=== PATIENT | male | born 1955 | race Caucasian/White ===

== ENCOUNTER 2024-06-22 14:23 | Inpatient (IN) | payer MEDICARE ==
[2024-06-22 15:56] VITALS: BMI 31.0
[2024-06-22] MEDS: ALPRAZolam 0.5 MG TAB PO SCH (23:38)
[2024-06-22] MEDS: Tamsulosin HCl 0.4 MG CAP PO SCH (23:38)
[2024-06-22] MEDS: Ranolazine ER 500 MG TAB PO SCH (23:39)
[2024-06-22] MEDS: Atorvastatin Calcium 40 MG TAB PO SCH (23:39)
[2024-06-22] MEDS: LevoFLOXacin 500 MG TAB PO SCH (23:39)
[2024-06-22] MEDS: Carbidopa/Levodopa 25-100 mg Tablet PO SCH (23:39)
[2024-06-23] MEDS ORDERED: Ondansetron ODT 4 MG TAB PO PRN (06:29)
[2024-06-23] MEDS ORDERED: Acetaminophen 325 MG TAB PO PRN (06:45)
[2024-06-23] MEDS: Isosorbide Mononitrate 30 MG ER.TAB PO SCH (08:35)
[2024-06-23] MEDS: Prasugrel 10 MG TAB PO SCH (08:35)
[2024-06-23] MEDS: Pantoprazole DR 40 MG TAB PO SCH (08:36)
[2024-06-23] MEDS: Amlodipine 5 MG TAB PO SCH (08:36)
[2024-06-23] MEDS: ALPRAZolam 0.5 MG TAB PO SCH (08:36)
[2024-06-23] MEDS: Tamsulosin HCl 0.4 MG CAP PO SCH (08:36)
[2024-06-23] MEDS: Carbidopa/Levodopa 25-100 mg Tablet PO SCH ×2 (08:36→11:39)
[2024-06-23] MEDS: Escitalopram Oxalate 10 mg Tablet PO SCH (08:37)
[2024-06-23] MEDS: Enoxaparin 40 MG (0.4 mL) SYRINGE SC SCH (08:37)
[2024-06-23] MEDS: Amantadine HCl 100 mg Capsule PO SCH (08:37)
[2024-06-23] MEDS: Ranolazine ER 500 MG TAB PO SCH (08:37)
[2024-06-23] MEDS: Mometasone 100 MCG/Formoterol 5 MCG 60 PUFF AEROSOL INH SCH (08:37)
[2024-06-23] MEDS: RASAGILINE MESYLATE 1 MG PO SCH (08:38)
[2024-06-23] MEDS: PIROXICAM 20 MG PO SCH (08:39)
[2024-06-23] MEDS: Polyethylene Glycol 3350 17 GM Packet PO PRN (09:02)
[2024-06-23] MEDS: Aspirin 81 mg Enteric Coated Tablet PO SCH (11:38)
[2024-06-23] MEDS: Senokot S 8.6-50 MG TAB PO SCH ×2 (11:39→20:07)
[2024-06-23] MEDS ORDERED: CARBIDOPA PO SCH (12:00)
[2024-06-23] MEDS ORDERED: LEVODOPA PO SCH (12:00)
[2024-06-23] MEDS ORDERED: [UNRECOGNIZED DRUG - OTHER] PO SCH (12:00)
[2024-06-23] MEDS: LevoFLOXacin 500 MG TAB PO SCH (16:50)
[2024-06-23] MEDS: Atorvastatin Calcium 40 MG TAB PO SCH (20:07)
[2024-06-24] MEDS: Polyethylene Glycol 3350 17 GM Packet PO SCH (08:30)
[2024-06-24] MEDS: PIROXICAM 20 MG PO SCH (08:32)
[2024-06-24] MEDS: RASAGILINE MESYLATE 1 MG PO SCH (08:32)
[2024-06-24 08:56] VITALS: BMI 31.0
[2024-06-25] MEDS: hydrALAZINE 10 MG TAB PO SCH (20:11)
[2024-06-25] MEDS ORDERED: hydrALAZINE 25 MG TAB PO SCH (21:00)
[2024-06-26] MEDS: Amlodipine 5 MG TAB PO SCH (20:26)
[2024-06-27 15:10] VITALS: BP 133/86; TEMP 97.5
== END 2024-06-27 17:10 | disposition home or self-care (01) | DRG 947 ==
LOC: MADMS 15:11
PROVIDERS: ADMIT Family Medicine; ATTEND Family Medicine
DX: R53.81 Other malaise (principal); J18.9 Pneumonia, unspecified organism; N39.0 Urinary tract infection, site not specified; G20.A1 Parkinson's disease without dyskinesia, without mention of fluctuations; I10 Essential (primary) hypertension; E78.5 Hyperlipidemia, unspecified; N40.0 Benign prostatic hyperplasia without lower urinary tract symptoms; I25.10 Atherosclerotic heart disease of native coronary artery without angina pectoris; Z98.890 Other specified postprocedural states; Z79.82 Long term (current) use of aspirin; Z79.899 Other long term (current) drug therapy; K21.9 Gastro-esophageal reflux disease without esophagitis; F41.9 Anxiety disorder, unspecified; Z88.0 Allergy status to penicillin
CPT/HCPCS: 71045; 94664; J1650